=== PATIENT | female | born 1995 | race African-American/Black ===

== ENCOUNTER 2016-09-28 23:55 | Emergency (ER) | payer OTHER ==
[2016-09-29] MEDS ORDERED: ACETAMINOPHEN 325 MG TAB PO ONE (02:00)
[2016-09-29 02:24] LABS: MEAN CORPUSCULAR HEMOGLOBIN 32.5 pg (27.0-33.0); MEAN CORPUSCULAR HGB CONC 35.9 g/dl (32.0-36.5); MEAN CORPUSCULAR VOLUME 90.5 fl (80.0-96.0); NEUTROPHILS % 59.8 % (36.0-66.0); PLATELET COUNT, AUTOMATED 273 k/mm3 (150-450); RED CELL DISTRIBUTION WIDTH 12.1 % (11.5-14.5); WHITE BLOOD COUNT 9.3 K/mm3 (4.0-10.0)
[2016-09-29 02:25] LABS: BASO # 0.1 K/mm3 (0.0-0.2); BASO % 0.7 % (0.0-1.0); EOS # 0.2 K/mm3 (0.0-0.50); EOS % 1.7 % (0.0-3.0); LARGE UNSTAINED CELL # 0.2 K/mm3 (0.0-0.4); LARGE UNSTAINED CELL % 2.1 % (0.0-4.0); LYMPH % 29.9 % (24.0-44.0); MONO # 0.6 K/mm3 (0.0-0.8); MONO % 5.9 % (0.0-5.0); NEUTROPHILS # 5.6 K/mm3 (1.8-7.7)
[2016-09-29] MEDS ORDERED: CIPROFLOXACIN 400 MG in APPROPRIATE DILUENT 1 EA IV ONE (02:45)
[2016-09-29 02:51] LABS: ALBUMIN 3.7 GM/DL (3.2-5.2); ALBUMIN/GLOBULIN RATIO 1.19 (1.00-1.93); ALKALINE PHOSPHATASE 82 U/L (45-117); ALT/SGPT 25 U/L (12-78); ANION GAP 7 MEQ/L (8-16); AST/SGOT 15 U/L (15-37); BILIRUBIN,DIRECT 0.1 MG/DL (0.0-0.2); BILIRUBIN,TOTAL 0.5 MG/DL (0.2-1.0); BLOOD UREA NITROGEN 11 MG/DL (7-18); CALCIUM LEVEL 8.6 MG/DL (8.5-10.1); CARBON DIOXIDE LEVEL 27 MEQ/L (21-32); CHLORIDE LEVEL 108 MEQ/L (98-107); CREATININE FOR GFR 0.69 MG/DL (0.55-1.02); GLOMERULAR FILTRATION RATE > 60.0 (>60); GLUCOSE, FASTING 100 MG/DL (70-105); HCG, SERUM QUANTITATIVE < 1.0 MIU/ML; SODIUM LEVEL 142 MEQ/L (136-145); TOTAL PROTEIN 6.8 GM/DL (6.4-8.2)
[2016-09-29] MEDS ORDERED: CIPR-249 PO (03:51)
[2016-09-29 03:58] VITALS: BP 132/73
[2016-09-29] MEDS ORDERED: ROBA500T PO (15:00)
[2016-09-29] MEDS ORDERED: IBUP-1022 PO (15:00)
== END 2016-09-29 04:00 | disposition home or self-care (01) ==
LOC: M ED 23:55
DX: N39.0 Urinary tract infection, site not specified (principal); Z87.39 Personal history of other diseases of the musculoskeletal system and connective tissue
CPT/HCPCS: 36415; 80048; 80076; 81001; 84702; 85025; 87086; 96374; 99283; J0744

== ENCOUNTER 2016-09-29 13:04 | Emergency (ER) | payer OTHER ==
[~2016-09-29] VITALS: Ht 162.6 cm; Wt 68.2 kg
[~2016-09-29 13:04] MED LIST: CIPR-249 PO
[2016-09-29] MEDS ORDERED: ACETAMINOPHEN TAB 650MG DOSE (2X325MG) PO ONE (13:45)
--- NOTE | 2016-09-29 14:11 | REP ---
CT cervical spine without contrast HISTORY: Neck pain COMPARISON: None There is no acute fracture or subluxation. There is no disc bulge or herniation. The spinal canal and neural foramina are patent. The intervertebral discs and vertebral bodies are normal in height. IMPRESSION: There is no acute fracture or subluxation. Signed by Trae Shannon MD 09/29/2016 02:03 P
--- NOTE | 2016-09-29 14:57 | REP ---
Right shoulder three views: There is no fracture or dislocation. Mineralization joint spaces are normal. There are no calcifications or foreign bodies. Impression: Negative right shoulder. Signed by Alcides Almendarez MD 09/29/2016 02:49 P
[2016-09-29] MEDS ORDERED: ROBA500T PO (15:00)
[2016-09-29] MEDS ORDERED: IBUP-1022 PO (15:00)
[2016-09-29 15:09] VITALS: BP 139/72
== END 2016-09-29 15:10 | disposition home or self-care (01) ==
LOC: M ED 13:04
DX: S40.011A Contusion of right shoulder, initial encounter (principal); V49.40XA Driver injured in collision with unspecified motor vehicles in traffic accident, initial encounter; Y92.410 Unspecified street and highway as the place of occurrence of the external cause; Y93.9 Activity, unspecified; Y99.8 Other external cause status; Z87.39 Personal history of other diseases of the musculoskeletal system and connective tissue

== ENCOUNTER 2017-05-30 00:16 | Emergency (ER) | payer OTHER | END 2017-05-30 02:32 | disposition home or self-care (01) | LOC: M ED 00:16 | DX: F43.0 Acute stress reaction (principal) | CPT/HCPCS: 36415 ==